=== PATIENT | female | born 1970 | race Caucasian/White ===

== ENCOUNTER → 2022-03-19 | Outpatient (CLI) | payer OTHER ==
[~2022-03-19] MED LIST: AMITRIPTYLINE50 MG PO; BENZONATATE200 MG PO; CLARITIN10 MG PO; DELTASONE20 M1 PO; DIFLUCAN200 MG PO; IBU-8800 MG PO; MEDROL DOSEPAK4 MG PO; PERCOCET 325 MG1 TA5 PO; PREDNISONE10 M1 PO; ZITHROMAX250 MG PO
== END ==
LOC: US 00:28
PROVIDERS: ATTEND Surgery
DX: R10.9 Unspecified abdominal pain (principal)

== ENCOUNTER → 2022-04-07 | Outpatient (CLI) | payer OTHER | END | disposition home or self-care (01) | LOC: CT 09:00 | PROVIDERS: ATTEND Surgery | DX: R10.0 Acute abdomen (principal) ==

== ENCOUNTER → 2022-04-20 | Outpatient (CLI) | payer OTHER | END | disposition home or self-care (01) | LOC: NM 07:00 | PROVIDERS: ATTEND Surgery | DX: R10.9 Unspecified abdominal pain (principal) ==

== ENCOUNTER → 2022-06-26 | Day surgery (SDC) | payer OTHER ==
[2022-06-22 14:09] VITALS: BP 91/57
[2022-06-26] VITALS (8 sets, daily range): BP systolic 104–162; BP diastolic 58–81
[~2022-06-26] VITALS: Ht 165.1 cm; Wt 81.6 kg
[~2022-06-26] MED LIST changes: +ATENOLOL25 MG PO; +COLACE100 MG PO; +CRESTOR5 M1 PO; +HYDROCODONE-AC1 EAC1 PO; +ONDANSETRON HYDR4 M1 PO
== END | disposition home or self-care (01) ==
LOC: SDC 06-22 14:00
PROVIDERS: ATTEND Surgery
DX: K82.8 Other specified diseases of gallbladder (principal); I10 Essential (primary) hypertension; I25.10 Atherosclerotic heart disease of native coronary artery without angina pectoris; G43.909 Migraine, unspecified, not intractable, without status migrainosus; E78.00 Pure hypercholesterolemia, unspecified; F17.210 Nicotine dependence, cigarettes, uncomplicated